=== PATIENT | male | born 1935 | race Caucasian/White ===

== ENCOUNTER 2016-07-05 12:21 | Inpatient (IN) | payer MEDICARE ==
[~2016-07-05] VITALS: Ht 193 cm; Wt 63.8 kg
[2016-07-05] MEDS ORDERED: ACETAMINOPHEN 650 MG SUPP RECTAL PRN (12:25)
[2016-07-05] MEDS ORDERED: MAG HYDROX 30 ML UDC PO PRN (12:25)
[2016-07-05] MEDS ORDERED: PNEUMO VAC 25 MCG/0.5 ML VL IM.VACC ONE (12:25)
[2016-07-05] MEDS ORDERED: NEB-XOPENEX 0.63 MG/3 ML INH PRN (12:30)
[2016-07-05 15:05] VITALS: RESP 20
[2016-07-05] MEDS: DUONEB INH SCH ×3 (15:29→22:41)
[2016-07-05 16:04] VITALS: BP_SYST 130; RESP 24; TEMP 98.3
[2016-07-05] MEDS: NEB-BUDESONIDE 0.5 MG INH SCH (20:03)
[2016-07-05] MEDS: CEFDINIR 300 MG CAP PO SCH (20:43)
[2016-07-05] MEDS: LORAZEPAM 0.5 MG TAB PO SCH (20:43)
[2016-07-05] MEDS: METOPROLOL XL 25 MG TAB PO SCH (20:43)
[2016-07-05] MEDS: Atorvastatin 10 MG TAB PO SCH (20:43)
[2016-07-05] MEDS: TAMSULOSIN 0.4 MG CAP PO SCH (20:43)
[2016-07-05] MEDS ORDERED: TUBERCULIN PPD 5 UNIT SYR ID.VACC ONE (21:00)
[2016-07-06] VITALS (7 sets, daily range): BP systolic 127–147; RESP 16–20; TEMP 97.4–97.7
[2016-07-06] MEDS: PANTOPRAZOLE 40 MG TAB PO SCH (06:18)
[2016-07-06] MEDS: DUONEB INH SCH ×4 (06:48→22:31)
[2016-07-06] MEDS: NEB-BUDESONIDE 0.5 MG INH SCH ×2 (06:48→18:47)
[2016-07-06] MEDS: ACETAMINOPHEN 325 MG TAB PO PRN (07:25)
[2016-07-06] MEDS: PREDNISONE 20 MG TAB PO SCH (08:32)
[2016-07-06] MEDS: ENOXAPARIN 40 MG/0.4 ML SYR SUBQ SCH (08:32)
[2016-07-06] MEDS: AZITHROMYCIN 250 MG TAB PO SCH (08:32)
[2016-07-06] MEDS: CEFDINIR 300 MG CAP PO SCH ×2 (08:32→20:31)
[2016-07-06] MEDS: ASPIRIN 81 MG CHEW TAB PO SCH (08:32)
[2016-07-06] MEDS: LORAZEPAM 0.5 MG TAB PO SCH ×2 (08:33→20:32)
[2016-07-06] MEDS: Atorvastatin 10 MG TAB PO SCH (20:31)
[2016-07-06] MEDS: METOPROLOL XL 25 MG TAB PO SCH (20:32)
[2016-07-06] MEDS: TAMSULOSIN 0.4 MG CAP PO SCH (20:32)
[2016-07-07] MEDS: PANTOPRAZOLE 40 MG TAB PO SCH (06:09)
[2016-07-07] MEDS: NEB-BUDESONIDE 0.5 MG INH SCH ×2 (07:17→19:12)
[2016-07-07] MEDS: DUONEB INH SCH ×4 (07:17→23:03)
[2016-07-07] MEDS: AZITHROMYCIN 250 MG TAB PO SCH (08:54)
[2016-07-07] MEDS: ASPIRIN 81 MG CHEW TAB PO SCH (08:54)
[2016-07-07] MEDS: ENOXAPARIN 40 MG/0.4 ML SYR SUBQ SCH (08:54)
[2016-07-07] MEDS: PREDNISONE 20 MG TAB PO SCH (08:55)
[2016-07-07] MEDS: THEOPHYLLINE ER 300 MG TAB PO SCH (08:55)
[2016-07-07] MEDS: LORAZEPAM 0.5 MG TAB PO SCH ×2 (08:55→20:15)
[2016-07-07] MEDS: CEFDINIR 300 MG CAP PO SCH ×2 (08:55→20:15)
[2016-07-07 09:14] VITALS: BP_SYST 121; TEMP 97.6
[2016-07-07 09:15] VITALS: RESP 20
[2016-07-07 10:39] VITALS: Ht 193 cm; Wt 63.8 kg
[2016-07-07 15:46] VITALS: BP_SYST 118; RESP 18; TEMP 97.9
[2016-07-07] MEDS: [UNRECOGNIZED DRUG - OTHER] EYE EACH SCH ×2 (16:48→20:15)
[2016-07-07] MEDS: HYPROMELLOSE EYE EACH SCH ×2 (16:48→20:15)
[2016-07-07] MEDS: TAMSULOSIN 0.4 MG CAP PO SCH (20:15)
[2016-07-07] MEDS: METOPROLOL XL 25 MG TAB PO SCH (20:15)
[2016-07-07] MEDS: Atorvastatin 10 MG TAB PO SCH (20:16)
[2016-07-07] MEDS: SKIN TEST: READ AND RECORD XX SCH (20:16)
[2016-07-08 01:37] VITALS: BP_SYST 136; RESP 18; TEMP 97.4
[2016-07-08] MEDS: PANTOPRAZOLE 40 MG TAB PO SCH (06:39)
[2016-07-08] MEDS: NEB-BUDESONIDE 0.5 MG INH SCH ×2 (07:14→19:04)
[2016-07-08] MEDS: DUONEB INH SCH ×4 (07:14→23:15)
[2016-07-08] MEDS: ASPIRIN 81 MG CHEW TAB PO SCH (09:02)
[2016-07-08] MEDS: CEFDINIR 300 MG CAP PO SCH ×2 (09:02→20:19)
[2016-07-08] MEDS: HYPROMELLOSE EYE EACH SCH ×3 (09:03→20:19)
[2016-07-08] MEDS: THEOPHYLLINE ER 300 MG TAB PO SCH (09:03)
[2016-07-08] MEDS: [UNRECOGNIZED DRUG - OTHER] EYE EACH SCH ×3 (09:03→20:19)
[2016-07-08] MEDS: PREDNISONE 20 MG TAB PO SCH (09:03)
[2016-07-08] MEDS: LORAZEPAM 0.5 MG TAB PO SCH ×2 (09:03→20:21)
[2016-07-08] MEDS: AZITHROMYCIN 250 MG TAB PO SCH (09:04)
[2016-07-08] MEDS: ENOXAPARIN 40 MG/0.4 ML SYR SUBQ SCH (09:04)
[2016-07-08 09:46] VITALS: BP_SYST 133
[2016-07-08 09:47] VITALS: RESP 20; TEMP 97.2
[2016-07-08] MEDS: METOPROLOL XL 25 MG TAB PO SCH (20:19)
[2016-07-08] MEDS: Atorvastatin 10 MG TAB PO SCH (20:19)
[2016-07-08] MEDS: TAMSULOSIN 0.4 MG CAP PO SCH (20:19)
[2016-07-08 20:33] VITALS: BP_SYST 130; RESP 20; TEMP 97.6
[2016-07-09] MEDS: PANTOPRAZOLE 40 MG TAB PO SCH (06:11)
[2016-07-09] MEDS: DUONEB INH SCH ×4 (07:29→22:24)
[2016-07-09] MEDS: NEB-BUDESONIDE 0.5 MG INH SCH ×2 (07:29→18:24)
[2016-07-09] MEDS: [UNRECOGNIZED DRUG - OTHER] EYE EACH SCH ×3 (09:21→20:43)
[2016-07-09] MEDS: CEFDINIR 300 MG CAP PO SCH ×2 (09:21→20:43)
[2016-07-09] MEDS: PREDNISONE 20 MG TAB PO SCH (09:21)
[2016-07-09] MEDS: HYPROMELLOSE EYE EACH SCH ×3 (09:21→20:43)
[2016-07-09] MEDS: LORAZEPAM 0.5 MG TAB PO SCH ×2 (09:21→20:43)
[2016-07-09] MEDS: ASPIRIN 81 MG CHEW TAB PO SCH (09:21)
[2016-07-09] MEDS: THEOPHYLLINE ER 300 MG TAB PO SCH (09:22)
[2016-07-09] MEDS: ENOXAPARIN 40 MG/0.4 ML SYR SUBQ SCH (09:22)
[2016-07-09 10:47] VITALS: BP_SYST 104; RESP 20
[2016-07-09 14:54] VITALS: TEMP 97.4
[2016-07-09 16:12] VITALS: BP_SYST 104; RESP 20; TEMP 98.3
[2016-07-09] MEDS: METOPROLOL XL 25 MG TAB PO SCH (20:43)
[2016-07-09] MEDS: TAMSULOSIN 0.4 MG CAP PO SCH (20:43)
[2016-07-09] MEDS: Atorvastatin 10 MG TAB PO SCH (20:43)
[2016-07-10] VITALS (8 sets, daily range): BP systolic 114–122; RESP 18–20; TEMP 97.4–97.9
[2016-07-10] MEDS: PANTOPRAZOLE 40 MG TAB PO SCH (06:20)
[2016-07-10] MEDS: DUONEB INH SCH ×4 (07:12→22:32)
[2016-07-10] MEDS: NEB-BUDESONIDE 0.5 MG INH SCH ×2 (07:12→18:15)
[2016-07-10] MEDS: ASPIRIN 81 MG CHEW TAB PO SCH (10:13)
[2016-07-10] MEDS: CEFDINIR 300 MG CAP PO SCH ×2 (10:14→21:00)
[2016-07-10] MEDS: THEOPHYLLINE ER 300 MG TAB PO SCH (10:14)
[2016-07-10] MEDS: [UNRECOGNIZED DRUG - OTHER] EYE EACH SCH ×3 (10:15→21:02)
[2016-07-10] MEDS: HYPROMELLOSE EYE EACH SCH ×3 (10:15→21:02)
[2016-07-10] MEDS: ENOXAPARIN 40 MG/0.4 ML SYR SUBQ SCH (10:15)
[2016-07-10] MEDS: LORAZEPAM 0.5 MG TAB PO SCH ×2 (10:19→21:00)
[2016-07-10] MEDS ORDERED: CALC CARB 500 MG CHEWTAB PO PRN (11:10)
[2016-07-10] MEDS: METOPROLOL XL 25 MG TAB PO SCH (21:00)
[2016-07-10] MEDS: Atorvastatin 10 MG TAB PO SCH (21:00)
[2016-07-10] MEDS: TAMSULOSIN 0.4 MG CAP PO SCH (21:01)
[2016-07-11] MEDS: PANTOPRAZOLE 40 MG TAB PO SCH (06:13)
[2016-07-11] MEDS: NEB-BUDESONIDE 0.5 MG INH SCH ×2 (06:28→17:19)
[2016-07-11] MEDS: DUONEB INH SCH ×4 (06:28→23:28)
[2016-07-11] MEDS: ASPIRIN 81 MG CHEW TAB PO SCH (09:15)
[2016-07-11] MEDS: CEFDINIR 300 MG CAP PO SCH ×2 (09:15→20:35)
[2016-07-11] MEDS: LORAZEPAM 0.5 MG TAB PO SCH ×2 (09:15→20:34)
[2016-07-11] MEDS: HYPROMELLOSE EYE EACH SCH ×3 (09:16→20:34)
[2016-07-11] MEDS: ENOXAPARIN 40 MG/0.4 ML SYR SUBQ SCH (09:16)
[2016-07-11] MEDS: [UNRECOGNIZED DRUG - OTHER] EYE EACH SCH ×3 (09:16→20:34)
[2016-07-11 09:32] VITALS: BP_SYST 108; RESP 20; TEMP 97.5
[2016-07-11 17:33] VITALS: BP_SYST 125; RESP 18; TEMP 97.6
[2016-07-11] MEDS: TAMSULOSIN 0.4 MG CAP PO SCH (20:34)
[2016-07-11] MEDS: Atorvastatin 10 MG TAB PO SCH (20:35)
[2016-07-11] MEDS: METOPROLOL XL 25 MG TAB PO SCH (20:35)
[2016-07-12 00:11] VITALS: BP_SYST 107; RESP 18; TEMP 98.3
[2016-07-12] MEDS: PANTOPRAZOLE 40 MG TAB PO SCH (06:03)
[2016-07-12] MEDS: ACETAMINOPHEN 325 MG TAB PO PRN (07:36)
[2016-07-12] MEDS: DUONEB INH SCH ×4 (08:00→22:46)
[2016-07-12] MEDS: NEB-BUDESONIDE 0.5 MG INH SCH ×2 (08:00→18:44)
[2016-07-12] MEDS: [UNRECOGNIZED DRUG - OTHER] EYE EACH SCH ×3 (08:39→21:11)
[2016-07-12] MEDS: HYPROMELLOSE EYE EACH SCH ×3 (08:39→21:11)
[2016-07-12] MEDS: ASPIRIN 81 MG CHEW TAB PO SCH (08:39)
[2016-07-12] MEDS: ENOXAPARIN 40 MG/0.4 ML SYR SUBQ SCH (08:40)
[2016-07-12] MEDS: LORAZEPAM 0.5 MG TAB PO SCH ×2 (08:41→21:10)
[2016-07-12 11:36] VITALS: BP_SYST 110
[2016-07-12 11:38] VITALS: RESP 20; TEMP 97.3
[2016-07-12 19:58] VITALS: BP_SYST 108; RESP 20; TEMP 97
[2016-07-12] MEDS ORDERED: TUBERCULIN PPD 5 UNIT SYR ID.VACC ONE (21:00)
[2016-07-12] MEDS: TAMSULOSIN 0.4 MG CAP PO SCH (21:10)
[2016-07-12] MEDS: Atorvastatin 10 MG TAB PO SCH (21:10)
[2016-07-12] MEDS: METOPROLOL XL 25 MG TAB PO SCH (21:10)
[2016-07-13] MEDS: PANTOPRAZOLE 40 MG TAB PO SCH (06:10)
[2016-07-13] MEDS: NEB-BUDESONIDE 0.5 MG INH SCH ×2 (07:50→19:06)
[2016-07-13] MEDS: DUONEB INH SCH ×3 (07:50→19:06)
[2016-07-13] MEDS: [UNRECOGNIZED DRUG - OTHER] EYE EACH SCH ×3 (08:38→20:28)
[2016-07-13] MEDS: HYPROMELLOSE EYE EACH SCH ×3 (08:38→20:28)
[2016-07-13] MEDS: ASPIRIN 81 MG CHEW TAB PO SCH (08:38)
[2016-07-13] MEDS: ENOXAPARIN 40 MG/0.4 ML SYR SUBQ SCH (08:39)
[2016-07-13] MEDS: LORAZEPAM 0.5 MG TAB PO SCH ×2 (08:41→20:29)
[2016-07-13 11:08] VITALS: BP_SYST 103
[2016-07-13 11:09] VITALS: RESP 18; TEMP 97.7
[2016-07-13 16:18] VITALS: BP_SYST 91; RESP 18; TEMP 98
[2016-07-13] MEDS: TAMSULOSIN 0.4 MG CAP PO SCH (20:29)
[2016-07-13] MEDS: Atorvastatin 10 MG TAB PO SCH (20:29)
[2016-07-13] MEDS: METOPROLOL XL 25 MG TAB PO SCH (20:29)
[2016-07-14 05:36] VITALS: BP_SYST 100; RESP 18; TEMP 97.8
[2016-07-14] MEDS: PANTOPRAZOLE 40 MG TAB PO SCH (05:43)
[2016-07-14] MEDS: DUONEB INH SCH ×4 (06:35→23:09)
[2016-07-14] MEDS: NEB-BUDESONIDE 0.5 MG INH SCH ×2 (06:35→18:44)
[2016-07-14 07:22] VITALS: BP_SYST 113; TEMP 97.3
[2016-07-14 07:23] VITALS: RESP 20
[2016-07-14 09:05] VITALS: BP_SYST 114; RESP 22; TEMP 97.6
[2016-07-14] MEDS: ASPIRIN 81 MG CHEW TAB PO SCH (09:25)
[2016-07-14] MEDS: ACETAMINOPHEN 325 MG TAB PO PRN (09:27)
[2016-07-14] MEDS: HYPROMELLOSE EYE EACH SCH ×3 (09:28→20:21)
[2016-07-14] MEDS: [UNRECOGNIZED DRUG - OTHER] EYE EACH SCH ×3 (09:28→20:21)
[2016-07-14] MEDS: ENOXAPARIN 40 MG/0.4 ML SYR SUBQ SCH (09:29)
[2016-07-14] MEDS: LORAZEPAM 0.5 MG TAB PO SCH ×2 (09:39→20:21)
[2016-07-14 16:08] VITALS: BP_SYST 87; RESP 18; TEMP 97.9
[2016-07-14 18:03] VITALS: BP_SYST 110
[2016-07-14] MEDS: METOPROLOL XL 25 MG TAB PO SCH (20:21)
[2016-07-14] MEDS: TAMSULOSIN 0.4 MG CAP PO SCH (20:21)
[2016-07-14] MEDS: Atorvastatin 10 MG TAB PO SCH (20:21)
[2016-07-14] MEDS: SKIN TEST: READ AND RECORD XX SCH (20:23)
[2016-07-15 04:46] VITALS: BP_SYST 110; RESP 18; TEMP 97.4
[2016-07-15 04:47] VITALS: TEMP 97.4
[2016-07-15] MEDS: PANTOPRAZOLE 40 MG TAB PO SCH (06:18)
[2016-07-15] MEDS: NEB-BUDESONIDE 0.5 MG INH SCH ×2 (06:28→17:34)
[2016-07-15] MEDS: DUONEB INH SCH ×4 (06:28→23:23)
[2016-07-15 09:13] VITALS: BP_SYST 120; RESP 20
[2016-07-15 09:15] VITALS: RESP 20; TEMP 97.3
[2016-07-15] MEDS: ENOXAPARIN 40 MG/0.4 ML SYR SUBQ SCH (09:22)
[2016-07-15] MEDS: LORAZEPAM 0.5 MG TAB PO SCH ×2 (09:30→20:20)
[2016-07-15] MEDS: ASPIRIN 81 MG CHEW TAB PO SCH (09:31)
[2016-07-15] MEDS: ACETAMINOPHEN 325 MG TAB PO PRN ×2 (09:31→21:06)
[2016-07-15] MEDS: [UNRECOGNIZED DRUG - OTHER] EYE EACH SCH ×3 (09:31→20:18)
[2016-07-15] MEDS: HYPROMELLOSE EYE EACH SCH ×3 (09:31→20:18)
[2016-07-15 15:54] VITALS: BP_SYST 113; RESP 18; TEMP 98.2
[2016-07-15] MEDS: Atorvastatin 10 MG TAB PO SCH (20:18)
[2016-07-15] MEDS: TAMSULOSIN 0.4 MG CAP PO SCH (20:18)
[2016-07-15] MEDS: METOPROLOL XL 25 MG TAB PO SCH (20:19)
[2016-07-16 01:08] VITALS: BP_SYST 143; RESP 20
[2016-07-16 01:09] VITALS: TEMP 97.9
[2016-07-16] MEDS: PANTOPRAZOLE 40 MG TAB PO SCH (06:00)
[2016-07-16] MEDS: DUONEB INH SCH ×4 (06:50→23:10)
[2016-07-16] MEDS: NEB-BUDESONIDE 0.5 MG INH SCH ×2 (06:50→18:39)
[2016-07-16] MEDS: LORAZEPAM 0.5 MG TAB PO SCH ×2 (09:14→21:39)
[2016-07-16] MEDS: ASPIRIN 81 MG CHEW TAB PO SCH (09:15)
[2016-07-16] MEDS: [UNRECOGNIZED DRUG - OTHER] EYE EACH SCH ×3 (09:15→21:39)
[2016-07-16] MEDS: HYPROMELLOSE EYE EACH SCH ×3 (09:15→21:39)
[2016-07-16] MEDS: ENOXAPARIN 40 MG/0.4 ML SYR SUBQ SCH (09:17)
[2016-07-16 10:01] VITALS: BP_SYST 100; RESP 18; TEMP 97.5
[2016-07-16 10:02] VITALS: RESP 18; TEMP 97.5
[2016-07-16] MEDS: ACETAMINOPHEN 325 MG TAB PO PRN (13:10)
[2016-07-16] MEDS: AMOXICILLIN/CLAV 875 MG TAB PO SCH ×2 (15:12→21:39)
[2016-07-16] MEDS: DOXYCYCLINE 100 MG TAB PO SCH ×2 (15:12→21:39)
[2016-07-16 16:22] VITALS: BP_SYST 99; RESP 18; TEMP 97.7
[2016-07-16] MEDS ORDERED: ONDANSETRON ODT 4 MG TAB PO PRN (16:50)
[2016-07-16] MEDS ORDERED: ONDANSETRON 4 MG TAB ONE (17:41)
[2016-07-16 21:35] VITALS: BP_SYST 119
[2016-07-16] MEDS: METOPROLOL XL 25 MG TAB PO SCH (21:39)
[2016-07-16] MEDS: TAMSULOSIN 0.4 MG CAP PO SCH (21:39)
[2016-07-16] MEDS: Atorvastatin 10 MG TAB PO SCH (21:39)
[2016-07-17 02:39] VITALS: BP_SYST 104; RESP 18; TEMP 99.2
[2016-07-17 02:40] VITALS: TEMP 99.2
[2016-07-17] MEDS: PANTOPRAZOLE 40 MG TAB PO SCH (06:28)
[2016-07-17] MEDS: NEB-BUDESONIDE 0.5 MG INH SCH ×2 (06:56→18:46)
[2016-07-17] MEDS: DUONEB INH SCH ×4 (06:56→22:44)
[2016-07-17 09:02] VITALS: BP_SYST 100; RESP 18; TEMP 97.2
[2016-07-17] MEDS: DOXYCYCLINE 100 MG TAB PO SCH ×2 (09:03→20:25)
[2016-07-17] MEDS: LORAZEPAM 0.5 MG TAB PO SCH ×2 (09:03→20:31)
[2016-07-17] MEDS: AMOXICILLIN/CLAV 875 MG TAB PO SCH ×2 (09:03→20:25)
[2016-07-17] MEDS: ASPIRIN 81 MG CHEW TAB PO SCH (09:03)
[2016-07-17] MEDS: ENOXAPARIN 40 MG/0.4 ML SYR SUBQ SCH (09:04)
[2016-07-17] MEDS: HYPROMELLOSE EYE EACH SCH ×3 (09:07→20:24)
[2016-07-17] MEDS: [UNRECOGNIZED DRUG - OTHER] EYE EACH SCH ×3 (09:07→20:24)
[2016-07-17 19:33] VITALS: BP_SYST 100; RESP 20; TEMP 98
[2016-07-17] MEDS: SACCHA BOULARDII 250MG CAP PO SCH (20:25)
[2016-07-17] MEDS: Atorvastatin 10 MG TAB PO SCH (20:25)
[2016-07-17] MEDS: TAMSULOSIN 0.4 MG CAP PO SCH (20:26)
[2016-07-17] MEDS: METOPROLOL XL 25 MG TAB PO SCH (20:26)
[2016-07-18 02:28] VITALS: BP_SYST 95; RESP 18; TEMP 97.9
[2016-07-18] MEDS: PANTOPRAZOLE 40 MG TAB PO SCH (06:09)
[2016-07-18] MEDS: NEB-BUDESONIDE 0.5 MG INH SCH ×2 (07:32→19:16)
[2016-07-18] MEDS: DUONEB INH SCH ×4 (07:32→22:48)
[2016-07-18] MEDS: LORAZEPAM 0.5 MG TAB PO SCH ×2 (09:59→21:26)
[2016-07-18] MEDS: DOXYCYCLINE 100 MG TAB PO SCH ×2 (09:59→21:26)
[2016-07-18] MEDS: SACCHA BOULARDII 250MG CAP PO SCH ×2 (09:59→21:26)
[2016-07-18] MEDS: AMOXICILLIN/CLAV 875 MG TAB PO SCH ×2 (09:59→21:26)
[2016-07-18] MEDS: ASPIRIN 81 MG CHEW TAB PO SCH (09:59)
[2016-07-18] MEDS: HYPROMELLOSE EYE EACH SCH ×3 (09:59→21:26)
[2016-07-18] MEDS: [UNRECOGNIZED DRUG - OTHER] EYE EACH SCH ×3 (09:59→21:26)
[2016-07-18] MEDS: ENOXAPARIN 40 MG/0.4 ML SYR SUBQ SCH (10:00)
[2016-07-18 11:23] VITALS: BP_SYST 103; RESP 20; TEMP 97.3
[2016-07-18 17:10] VITALS: BP_SYST 102; RESP 18; TEMP 97.6
[2016-07-18] MEDS: TAMSULOSIN 0.4 MG CAP PO SCH (21:26)
[2016-07-18] MEDS: METOPROLOL XL 25 MG TAB PO SCH (21:26)
[2016-07-18] MEDS: Atorvastatin 10 MG TAB PO SCH (21:26)
[2016-07-19 01:27] VITALS: BP_SYST 124; RESP 18; TEMP 97.4
[2016-07-19] MEDS: PANTOPRAZOLE 40 MG TAB PO SCH (06:19)
[2016-07-19] MEDS: DUONEB INH SCH ×4 (07:33→22:39)
[2016-07-19] MEDS: NEB-BUDESONIDE 0.5 MG INH SCH ×2 (07:33→19:11)
[2016-07-19] MEDS: LORAZEPAM 0.5 MG TAB PO SCH ×2 (08:41→21:19)
[2016-07-19] MEDS: HYPROMELLOSE EYE EACH SCH ×3 (08:42→21:19)
[2016-07-19] MEDS: [UNRECOGNIZED DRUG - OTHER] EYE EACH SCH ×3 (08:42→21:19)
[2016-07-19] MEDS: DOXYCYCLINE 100 MG TAB PO SCH ×2 (08:42→21:00)
[2016-07-19] MEDS: SACCHA BOULARDII 250MG CAP PO SCH ×2 (08:43→21:19)
[2016-07-19] MEDS: ASPIRIN 81 MG CHEW TAB PO SCH (08:44)
[2016-07-19] MEDS: ENOXAPARIN 40 MG/0.4 ML SYR SUBQ SCH (08:45)
[2016-07-19] MEDS: AMOXICILLIN/CLAV 875 MG TAB PO SCH ×2 (08:45→21:19)
[2016-07-19 10:46] VITALS: BP_SYST 106; RESP 16; TEMP 97.5
[2016-07-19 10:48] VITALS: RESP 16; TEMP 97.5
[2016-07-19] MEDS ORDERED: BISACODYL 10 MG SUPP RECTAL ONE (12:05)
[2016-07-19] MEDS ORDERED: BISACODYL 10 MG SUPP RECTAL PRN (15:15)
[2016-07-19 15:53] VITALS: BP_SYST 101; RESP 18; TEMP 97.7
[2016-07-19] MEDS: ACETAMINOPHEN 325 MG TAB PO PRN (17:47)
[2016-07-19] MEDS: Atorvastatin 10 MG TAB PO SCH (21:19)
[2016-07-19] MEDS: TAMSULOSIN 0.4 MG CAP PO SCH (21:19)
[2016-07-19] MEDS: METOPROLOL XL 25 MG TAB PO SCH (21:19)
[2016-07-19] MEDS ORDERED: MISSING DOSE XX ONE (22:00)
[2016-07-20 00:54] VITALS: BP_SYST 106; TEMP 97.5
[2016-07-20 00:55] VITALS: TEMP 97.5
[2016-07-20 06:27] VITALS: BP_SYST 106; RESP 18; TEMP 97.5
[2016-07-20] MEDS: DUONEB INH SCH ×4 (06:31→22:42)
[2016-07-20] MEDS: NEB-BUDESONIDE 0.5 MG INH SCH ×2 (06:32→19:22)
[2016-07-20] MEDS: PANTOPRAZOLE 40 MG TAB PO SCH (06:59)
[2016-07-20 08:44] VITALS: BP_SYST 114; RESP 18; TEMP 97.7
[2016-07-20] MEDS: HYPROMELLOSE EYE EACH SCH ×3 (09:03→20:34)
[2016-07-20] MEDS: [UNRECOGNIZED DRUG - OTHER] EYE EACH SCH ×3 (09:03→20:34)
[2016-07-20] MEDS: AMOXICILLIN/CLAV 875 MG TAB PO SCH ×2 (09:04→20:35)
[2016-07-20] MEDS: LORAZEPAM 0.5 MG TAB PO SCH ×2 (09:04→20:34)
[2016-07-20] MEDS: DOXYCYCLINE 100 MG TAB PO SCH ×2 (09:04→20:34)
[2016-07-20] MEDS: ACETAMINOPHEN 325 MG TAB PO PRN (09:04)
[2016-07-20] MEDS: SACCHA BOULARDII 250MG CAP PO SCH ×2 (09:05→20:35)
[2016-07-20] MEDS: ASPIRIN 81 MG CHEW TAB PO SCH (09:05)
[2016-07-20] MEDS: ENOXAPARIN 40 MG/0.4 ML SYR SUBQ SCH (09:06)
[2016-07-20] MEDS: DOCUSATE SOD 100 MG CAP PO SCH ×2 (11:41→20:35)
[2016-07-20] MEDS: POLYETHYLENE GLYCOL 17 GM PACKET PO SCH (11:41)
[2016-07-20 15:28] VITALS: BP_SYST 119; TEMP 97.8
[2016-07-20 15:29] VITALS: RESP 20
[2016-07-20] MEDS: Atorvastatin 10 MG TAB PO SCH (20:35)
[2016-07-20] MEDS: TAMSULOSIN 0.4 MG CAP PO SCH (20:35)
[2016-07-20] MEDS: METOPROLOL XL 25 MG TAB PO SCH (20:35)
[2016-07-21 05:15] VITALS: BP_SYST 117; RESP 18; TEMP 97.8
[2016-07-21] MEDS: NEB-BUDESONIDE 0.5 MG INH SCH ×2 (06:08→19:22)
[2016-07-21] MEDS: DUONEB INH SCH ×4 (06:08→22:30)
[2016-07-21] MEDS: PANTOPRAZOLE 40 MG TAB PO SCH (06:10)
[2016-07-21 07:30] VITALS: BP_SYST 113
[2016-07-21 07:31] VITALS: RESP 20; TEMP 97.5
[2016-07-21] MEDS: [UNRECOGNIZED DRUG - OTHER] EYE EACH SCH ×3 (08:25→20:57)
[2016-07-21] MEDS: HYPROMELLOSE EYE EACH SCH ×3 (08:25→20:57)
[2016-07-21] MEDS: ASPIRIN 81 MG CHEW TAB PO SCH (08:26)
[2016-07-21] MEDS: DOCUSATE SOD 100 MG CAP PO SCH ×2 (08:26→20:58)
[2016-07-21] MEDS: DOXYCYCLINE 100 MG TAB PO SCH ×2 (08:26→20:57)
[2016-07-21] MEDS: AMOXICILLIN/CLAV 875 MG TAB PO SCH ×2 (08:26→20:58)
[2016-07-21] MEDS: LORAZEPAM 0.5 MG TAB PO SCH ×2 (08:26→20:58)
[2016-07-21] MEDS: POLYETHYLENE GLYCOL 17 GM PACKET PO SCH (08:26)
[2016-07-21] MEDS: SACCHA BOULARDII 250MG CAP PO SCH ×2 (08:26→20:57)
[2016-07-21] MEDS: ENOXAPARIN 40 MG/0.4 ML SYR SUBQ SCH (08:27)
[2016-07-21 15:27] VITALS: BP_SYST 99; RESP 18; TEMP 97.5
[2016-07-21] MEDS: Atorvastatin 10 MG TAB PO SCH (20:57)
[2016-07-21] MEDS: TAMSULOSIN 0.4 MG CAP PO SCH (20:58)
[2016-07-21] MEDS: METOPROLOL XL 25 MG TAB PO SCH (20:58)
[2016-07-22 00:47] VITALS: BP_SYST 109; RESP 18; TEMP 97.6
[2016-07-22] MEDS: PANTOPRAZOLE 40 MG TAB PO SCH (06:04)
[2016-07-22] MEDS: NEB-BUDESONIDE 0.5 MG INH SCH ×2 (07:19→19:15)
[2016-07-22] MEDS: DUONEB INH SCH ×4 (07:19→22:59)
[2016-07-22 07:50] VITALS: BP_SYST 124
[2016-07-22 07:51] VITALS: TEMP 97.5
[2016-07-22 07:53] VITALS: RESP 20
[2016-07-22] MEDS: LORAZEPAM 0.5 MG TAB PO SCH ×2 (08:42→20:51)
[2016-07-22] MEDS: ACETAMINOPHEN 325 MG TAB PO PRN (08:42)
[2016-07-22] MEDS: ASPIRIN 81 MG CHEW TAB PO SCH (08:43)
[2016-07-22] MEDS: AMOXICILLIN/CLAV 875 MG TAB PO SCH ×2 (08:43→20:51)
[2016-07-22] MEDS: DOXYCYCLINE 100 MG TAB PO SCH ×2 (08:43→20:51)
[2016-07-22] MEDS: DOCUSATE SOD 100 MG CAP PO SCH ×2 (08:43→20:51)
[2016-07-22] MEDS: SACCHA BOULARDII 250MG CAP PO SCH ×2 (08:44→20:51)
[2016-07-22] MEDS: [UNRECOGNIZED DRUG - OTHER] EYE EACH SCH ×3 (08:44→20:51)
[2016-07-22] MEDS: HYPROMELLOSE EYE EACH SCH ×3 (08:44→20:51)
[2016-07-22] MEDS: POLYETHYLENE GLYCOL 17 GM PACKET PO SCH (08:44)
[2016-07-22] MEDS: ENOXAPARIN 40 MG/0.4 ML SYR SUBQ SCH (08:45)
[2016-07-22 15:56] VITALS: BP_SYST 111; RESP 18; TEMP 98.1
[2016-07-22] MEDS: TAMSULOSIN 0.4 MG CAP PO SCH (20:51)
[2016-07-22] MEDS: Atorvastatin 10 MG TAB PO SCH (20:51)
[2016-07-22] MEDS: METOPROLOL XL 25 MG TAB PO SCH (20:51)
[2016-07-23] MEDS: PANTOPRAZOLE 40 MG TAB PO SCH (06:03)
[2016-07-23] MEDS: DUONEB INH SCH ×4 (07:00→23:19)
[2016-07-23] MEDS: NEB-BUDESONIDE 0.5 MG INH SCH ×2 (07:00→19:29)
[2016-07-23] MEDS: POLYETHYLENE GLYCOL 17 GM PACKET PO SCH (08:39)
[2016-07-23] MEDS: AMOXICILLIN/CLAV 875 MG TAB PO SCH (08:40)
[2016-07-23] MEDS: DOXYCYCLINE 100 MG TAB PO SCH (08:40)
[2016-07-23] MEDS: LORAZEPAM 0.5 MG TAB PO SCH ×2 (08:40→20:54)
[2016-07-23] MEDS: ACETAMINOPHEN 325 MG TAB PO PRN (08:40)
[2016-07-23] MEDS: DOCUSATE SOD 100 MG CAP PO SCH ×2 (08:41→20:54)
[2016-07-23] MEDS: [UNRECOGNIZED DRUG - OTHER] EYE EACH SCH ×3 (08:41→20:54)
[2016-07-23] MEDS: ASPIRIN 81 MG CHEW TAB PO SCH (08:41)
[2016-07-23] MEDS: HYPROMELLOSE EYE EACH SCH ×3 (08:41→20:54)
[2016-07-23] MEDS: SACCHA BOULARDII 250MG CAP PO SCH ×2 (08:42→20:54)
[2016-07-23] MEDS: ENOXAPARIN 40 MG/0.4 ML SYR SUBQ SCH (08:46)
[2016-07-23 11:26] VITALS: BP_SYST 103; RESP 18; TEMP 97.4
[2016-07-23 15:47] VITALS: BP_SYST 97; RESP 18; TEMP 98.3
[2016-07-23] MEDS: METOPROLOL XL 25 MG TAB PO SCH (20:54)
[2016-07-23] MEDS: Atorvastatin 10 MG TAB PO SCH (20:54)
[2016-07-23] MEDS: TAMSULOSIN 0.4 MG CAP PO SCH (20:54)
[2016-07-24 05:06] VITALS: BP_SYST 101; RESP 18; TEMP 97.4
[2016-07-24 05:07] VITALS: TEMP 97.4
[2016-07-24] MEDS: PANTOPRAZOLE 40 MG TAB PO SCH (06:11)
[2016-07-24] MEDS: DUONEB INH SCH ×4 (07:43→22:48)
[2016-07-24] MEDS: NEB-BUDESONIDE 0.5 MG INH SCH ×2 (07:43→19:29)
[2016-07-24] MEDS: DOCUSATE SOD 100 MG CAP PO SCH ×2 (08:57→21:06)
[2016-07-24] MEDS: SACCHA BOULARDII 250MG CAP PO SCH ×2 (08:57→21:06)
[2016-07-24] MEDS: ASPIRIN 81 MG CHEW TAB PO SCH (08:57)
[2016-07-24] MEDS: POLYETHYLENE GLYCOL 17 GM PACKET PO SCH (08:58)
[2016-07-24] MEDS: ENOXAPARIN 40 MG/0.4 ML SYR SUBQ SCH (08:59)
[2016-07-24] MEDS: HYPROMELLOSE EYE EACH SCH ×3 (08:59→21:05)
[2016-07-24] MEDS: [UNRECOGNIZED DRUG - OTHER] EYE EACH SCH ×3 (08:59→21:05)
[2016-07-24] MEDS: LORAZEPAM 0.5 MG TAB PO SCH ×2 (09:09→21:06)
[2016-07-24 10:33] VITALS: BP_SYST 109
[2016-07-24 10:34] VITALS: TEMP 97.3
[2016-07-24 10:35] VITALS: RESP 20
[2016-07-24 15:45] VITALS: BP_SYST 106; RESP 16; TEMP 98.5
[2016-07-24] MEDS: Atorvastatin 10 MG TAB PO SCH (21:06)
[2016-07-24] MEDS: TAMSULOSIN 0.4 MG CAP PO SCH (21:06)
[2016-07-24] MEDS: METOPROLOL XL 25 MG TAB PO SCH (21:06)
[2016-07-25 03:50] VITALS: BP_SYST 108; RESP 18; TEMP 98.7
[2016-07-25] MEDS: PANTOPRAZOLE 40 MG TAB PO SCH (06:17)
[2016-07-25] MEDS: NEB-BUDESONIDE 0.5 MG INH SCH (07:04)
[2016-07-25] MEDS: DUONEB INH SCH (07:04)
[2016-07-25 08:36] VITALS: TEMP 97.5
[2016-07-25 08:37] VITALS: BP_SYST 97
[2016-07-25 08:38] VITALS: RESP 20
[2016-07-25] MEDS: [UNRECOGNIZED DRUG - OTHER] EYE EACH SCH (08:48)
[2016-07-25] MEDS: LORAZEPAM 0.5 MG TAB PO SCH (08:48)
[2016-07-25] MEDS: HYPROMELLOSE EYE EACH SCH (08:48)
[2016-07-25] MEDS: ASPIRIN 81 MG CHEW TAB PO SCH (08:48)
[2016-07-25] MEDS: SACCHA BOULARDII 250MG CAP PO SCH (08:48)
[2016-07-25] MEDS: DOCUSATE SOD 100 MG CAP PO SCH (08:48)
[2016-07-25] MEDS: ENOXAPARIN 40 MG/0.4 ML SYR SUBQ SCH (08:50)
[2016-07-25] MEDS: POLYETHYLENE GLYCOL 17 GM PACKET PO SCH (08:50)
[2016-07-25 10:50] VITALS: BP_SYST 97; RESP 20; TEMP 97.5
== END 2016-07-25 13:04 | disposition home health service (06) | DRG 555 ==
LOC: ENPENDDIS 15:05 → NF 15:05
PROVIDERS: ADMIT Family Medicine; ATTEND Family Medicine
DX: R26.2 Difficulty in walking, not elsewhere classified (principal); J18.9 Pneumonia, unspecified organism; J96.11 Chronic respiratory failure with hypoxia; I11.0 Hypertensive heart disease with heart failure; J44.1 Chronic obstructive pulmonary disease with (acute) exacerbation; I50.32 Chronic diastolic (congestive) heart failure; N40.0 Benign prostatic hyperplasia without lower urinary tract symptoms; I25.10 Atherosclerotic heart disease of native coronary artery without angina pectoris; Z95.1 Presence of aortocoronary bypass graft
CPT/HCPCS: 36415; 71020; 80048; 81001; 82565; 85025; 87088; 87804; 94640; 94799; 99232; 99308; 99309; 99316